=== PATIENT | female | born 1985 | race Caucasian/White ===

== ENCOUNTER 2023-05-14 06:45 | Emergency (ER) | payer MEDICAID, OTHER ==
[~2023-05-14] VITALS: Ht 165 cm; Wt 70.0 kg
[~2023-05-14 06:45] MED LIST: ACET-11 PO; ACHYD1T PO; BCP; CALC-656 PO; CEPH-507 PO; DOCU100C37 PO; FAMO20TA5 PO; GLBR2.5T PO; IBP800T PO; IBUP-1773 PO; MGX400T PO; NITR-65 PO; OXYC-12 PO; PRED20TA PO; PREN1TAB39 PO; PREN1TAB71 PO
--- NOTE | 2023-05-14 07:36 | ED Back Pain ---
General Chief Complaint: Trauma-Non Activation Stated Complaint: FALL/BACK PAIN Nursing Triage Note: PT STATES HER DOG PULLED HER DOWN ABOUT 30 MIN [employer], CC OF RT LOWER BACK/HIP PAIN, DENIES HITTING HER HEAD, NO OTHER PAIN Source of Information: Patient Exam Limitations: No Limitations (SAMANTHA RAINEY) History of Present Illness Date Seen by Provider: May 14, 2023 Time Seen by Provider: 07:28 Initial Comments 37yo F with h/o sciatic nerve pain presents to the ED following a fall on her right lower back just prior to arrival. Pt states that she was walking her dogs this morning when one of them took off when she simultaneously stepped into a hole causing her to do a "front flip" and fall on her right lower back. Pt states that she experienced immediate pain in her right lower back with sharp pain radiating to her right leg. Pt denies any loss of motor or sensory function and was able to ambulate up the stairs unassisted back to her house where she then had her drive her to the ED for further evaluation. In room, pt looks uncomfortable and stiff secondary to pain but is in no acute distress. Pt states back pain feels dull and intermittently sharp and rates the pain a 7/10 at rest and a 10/10 with movement. ROM is limited due to pain but pt is able to spontaneously move all limbs. Pt denies having taken anything for pain prior to coming to ED. Denies hitting head, LOC, numbness or tingling of legs, any urinary or bowel incontinence, weakness of legs, nausea, vomiting, abd pain, CP, and SOA. 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 Location: Lumbar Spine (right) Timing/Duration: 1 Hour Severity: Moderate Pain/Injury Location: Back (right lower lumbar/flank) Radiation: Other (Right leg) Method of Injury: Fall Modifying Factors: Improves With Movement Associated Symptoms: No weakness, No numbness in legs/feet, No tingling in legs/feet, No sensory/motor loss, No loss of bladder control, No loss of bowel control (SAMANTHA RAINEY) Allergies and Home Medications Allergies Coded Allergies: No Known Drug Allergies (Unverified , 12/04/11) Patient Home Medication List Home Medication List Reviewed: Yes (SAMANTHA RAINEY) Acetaminophen with Codeine (Acetaminophen-Cod #3 Tablet) 1 Each Tablet, 1-2 TAB PO Q4H PRN for MODERATE TO SEVERE PAIN Prescribed by: ARPAN KRUEGER on 04/01/16 162 Docusate Sodium (Docusate Sodium) 100 Mg Capsule, 100 MG PO BID Prescribed by: ARPAN KRUEGER on 04/01/16 162 Ibuprofen (Ibuprofen) 600 Mg Tablet, 600 MG PO Q6H Prescribed by: ARPAN KRUEGER on 04/01/16 162 Methocarbamol (Methocarbamol) 750 Mg Tablet, 750 MG PO Q8H Prescribed by: ROSANNE TABARES on 05/14/23 0817 Vit/Iron Fumarate/FA ( Vitamin Tablet) 1 Each Tablet, 1 EACH PO, (Reported) Entered as Reported by: JAE PARKER on 03/29/162149 Review of Systems Constitutional: no symptoms reported EENTM: no symptoms reported Respiratory: no symptoms reported Cardiovascular: no symptoms reported Gastrointestinal: no symptoms reported Genitourinary: no symptoms reported; No incontinence LMP: May 02, 2023 Control/STD Prophylaxis: None Musculoskeletal: no symptoms reported, back pain (right lower lumbar/flank) Skin: no symptoms reported Psychiatric/Neurological: No Symptoms Reported (SAMANTHA RAINEY) All Other Systems Reviewed Negative Unless Noted: Yes (SAMANTHA RAINEY) Past Fxwgdmf-[id number]-Xrclrf Hx Patient Social History Tobacco Use?: No Substance use?: No Alcohol Use?: No (SAMANTHA RAINEY) Immunizations Up To Date Tetanus Booster (TDap): Less than 5yrs First/Initial COVID19 Vaccinat: YES (SAMANTHA RAINEY) Seasonal Allergies Seasonal Allergies: No (SAMANTHA RAINEY) Past Medical History Surgery/Hospitalization HX: DENIES MED HX Surgeries: No Respiratory: No Cardiac: No Neurological: No Last Menstrual Period: May 02, 2023 Reproductive Disorders: No Female Reproductive Disorders: Denies Sexually Transmitted Disease: No HIV/AIDS: No Gastrointestinal: No Musculoskeletal: Yes Chronic Back Pain (sciatic nerve pain) Endocrine: No HEENT: No Loss of Vision: Denies Hearing Impairment: Denies Cancer: No Psychosocial: Yes Anxiety, Depression Integumentary: No Adverse Reaction/Blood Tranf: No (SAMANTHA RAINEY) Family Medical History Patient reports no known family medical history. No Pertinent Family Hx (SAMANTHA RAINEY) Physical Exam Vital Signs Vital Signs - First Documented 05/14/23 07:06 Temp 36.7 Pulse 95 Resp 20 B/P (MAP) 119/84 (96) Pulse Ox 98 O2 Delivery Room Air (ROSANNE TABARES MD) Vital Signs Capillary Refill : Less Than 3 Seconds (SAMANTHA RAINEY) Height, Weight, BMI Height: 5'5.00" Weight: 185lbs. 0.0oz. [id number]; 25.00 BMI Method:Stated General Appearance: No Apparent Distress (appears uncomfortable secondary to pain but no distress ), WD/WN HEENT: PERRL/EOMI Neck: Non Tender, Supple Cardiovascular: Regular Rate, Rhythm, No Murmur Respiratory: Lungs Clear, Normal Breath Sounds, No Accessory Muscle Use, No Respiratory Distress Back: No CVA Tenderness, No Vertebral Tenderness, Decreased Range of Motion (secondary to pain ), Other (tenderness of R lateral lumbar/flank region with palpation; no bruising or abrasions noted to area) Extremity: Normal Inspection, Non Tender, Other (ROM limited secondary to pain R>L) Neurologic/Psychiatric: Alert, Oriented x3, No Motor/Sensory Deficits, Normal Mood/Affect Skin: Normal Color, Warm/Dry (SAMANTHA RAINEY) Progress/Results/Core Measures Results/Orders My Orders Orders - ROSANNE TABARES MD Urine Bedside (05/14/23 07:55) Ketorolac Injection (Ketorolac Injection (05/14/23 08:00) Orphenadrine Inj (Ed Only) (Orphenadrine (05/14/23 08:00) Lidocaine 4% Patch (Salonpas 4% Patch) (05/14/23 09:00) (ROSANNE TABARES MD) Medications Given in ED Current Medications Medications Dose Ordered Sig/Marie Route Start Time Stop Time Status Last Admin Dose Admin Ketorolac Tromethamine 60 mg ONCE ONCE IM 05/14/23 08:00 05/14/23 08:01 DC 05/14/23 08:12 60 MG Orphenadrine Citrate 60 mg ONCE ONCE IM 05/14/23 08:00 05/14/23 08:01 DC 05/14/23 08:12 60 MG (ROSANNE TABARES MD) Vital Signs/I&O 05/14/23 05/14/23 07:06 08:12 Temp 36.7 36.7 Pulse 95 Resp 20 B/P (MAP) 119/84 (96) Pulse Ox 98 O2 Delivery Room Air (ROSANNE TABARES MD) Blood Pressure Mean: 96 Progress Progress Note : Time: 08:17 Progress Note Patient seen and evaluated by me. Evaluation today includes physical exam. Pertinent physical exam findings include - WDWN female in moderate distress due to right posterior hop / back pain. VSS. Heart is regular, lungs clear. Abdomen is soft and benign. No skin wounds/ecchymoses or abrasions. She has normal dorsiflexion of the great toes bilaterally, normal sensation to the bilateral LE. 2+ DTR's patella bilaterally. No saddle anesthesia. No incontinence. movers all extremities equally well. Neg SLR. Back exam reveals to point tenderness over the midline spine. She has no tenderness over the posterior iliac crest. Most of her tenderness is located just above the posterior iliac crest. Differential diagnosis based on history and physical exam thoracic contusion, exacerbation of acute sciatica Patient is treated in the emergency department with 60 mg IM Toradol 60 mg IM Norflex and a lidocaine patch. She has no clinical indications of to suggest the need for imaging. CT lumbar spine was considered however history and physical do not support the need. She has no bony point tenderness related to the fall. She is neurologically intact. Conservative therapy recommended, ice, heat, muscle rubs, anti-inflammatories. Suggested that she stay mobile, follow- up with her primary care provider. Return precautions provided in both verbal and written format. All questions are sought and answered. Patient is improved at discharge (ROSANNE TABARES MD) Departure Impression Primary Impression: Back pain due to injury Disposition: 01 HOME, SELF-CARE Condition: Improved Departure-Patient Inst. Decision time for Depature: 08:12 (ROSANNE TABARES MD) Referrals: SANDI BRADY APRN (PCP/Family) Primary Care Physician Patient Instructions: Low Back Pain ED Add. Discharge Instructions: Use a lidocaine patch to the area of soreness for the next 2 days or so. Follow packaging instructions. Ibuprofen 600mg every 6 hours with food as needed for pain, 1-2 days. Alternate heat and ice as needed. Muscle relaxers every 8 hours as needed. Be careful using the muscle relaxers, as they can make you sleepy. Do not drive and take them. Return to the Emergency Department for any new, concerning or emergent complaints. Follow up with your primary care doctor. Scripts Methocarbamol (Methocarbamol) 750 Mg Tablet 750 MG PO Q8H for Back Pain, #20 TAB Prov: ROSANNE TABARES MD 05/14/23 Verification and Attestation of Medical Student E/M Service A medical student performed and documented this service in my presence. I reviewed and verified all information documented by the medical student and made modifications to such information, when appropriate. I personally performed the physical exam and medical decision making. Rosanne Tabares, May 14, 2023,08:09 (ROSANNE TABARES MD) SAMANTHA RAINEY May 14, 2023 07:36 ROSANNE TABARES MD May 14, 2023 08:16
[2023-05-14] MEDS ORDERED: KETOROLAC INJ 60 MG/2 ML VIAL IM ONE (08:00)
[2023-05-14] MEDS ORDERED: ORPHENADRINE 60 MG/2 ML AMP (ED ONLY) IM ONE (08:00)
[2023-05-14] MEDS ORDERED: METH-732 PO (08:17)
[2023-05-14 08:32] VITALS: BP 98/64
[2023-05-14] MEDS ORDERED: LIDOCAINE 4% PATCH TOP SCH (09:00)
== END 2023-05-14 08:32 | disposition home or self-care (01) ==
LOC: EDUNIT# 06:45 → ER 06:48
DX: S39.92XA Unspecified injury of lower back, initial encounter (principal); Z28.311 Partially vaccinated for COVID-19; W18.31XA Fall on same level due to stepping on an object, initial encounter; Y93.01 Activity, walking, marching and hiking
CPT/HCPCS: 84703; 99284